=== PATIENT | male | born 1965 | race Caucasian/White ===

== ENCOUNTER 2017-07-21 15:26 | Emergency (ER) | payer OTHER ==
[2017-07-21 15:33] VITALS: BMI 31.8
--- NOTE | 2017-07-21 15:57 | DR.GENAD ---
HPI - PCP Primary Care Physician: RANDALL - HPI Comment HPI Comment: GENERALIZE WEAKNESS THAT IS GETTING WORSE. PATIENT SAID HIS SYMTOMS ARE PERSISTANT. NO HISTORY OF TRAUMA. - Complaint/Symptoms Chief Complaint Doctors Comments: DYSARTHRIA, ATAXIA AND DIZZINESS SINCE THURSDAY. 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 - Nurses notes reviewed Nurses Notes Review: Yes - Source History Provided: Patient - Mode of Arrival Mode of Arrival: Ambulatory - Timing Onset of Chief Complaint: 07/19/17 Came on: Suddenly - Duration Duration: Constant Duration: Days - Severity Severity: Moderate PMH - PMH Past Medical History: Yes Past Medical History: Diabetes, Dyslipidemia, Hypertension Past Surgical History: Yes Past Surgical History Comment: HERNIA, TESTICLES - Family History History of Family Medical Conditions: No - Social History Does patient currently use any type of tobacco product: No Have you used tobacco products in the last 12 months: No Type of Tobacco Use: None Does any household member use tobacco: No Alcohol Use: None Do you use any recreational Drugs:: No Lives With: Family Lives Where: Home - infectious screening In the last 2 months have you had wt loss of >10#?: NO Have you had fever, night sweats or hemotysis?: No Have you traveled outside the country in the last 6 months?: No Isolation: Standard ROS - Review of Systems Constitutional: No Symptoms Reported Eyes: No Symptoms Reported ENTM: No Symptoms Reported Respiratoy: No Symptoms Reported Cardiovascular: No Symptoms Reported Gastrointestinal/Abdominal: No Symptoms Reported Genitourinary: No Symptoms Reported Neurological: Headache, Dizziness, Other (ATAXIA, VERTIGO) Musculoskeletal: No Symptoms Reported Integumentary: No Symptoms Reported Hematologic/Lymphatic: No Symptoms Reported Endocrine: No Symptoms Reported All Other Systems: Reviewed and Negative PE - Vital Signs Vitals: Temperature 98.6 F Pulse Rate [Right Brachial] 63 Pulse Rate 63 Respiratory Rate 20 Blood Pressure [Left Arm] 180/96 Blood Pressure 167/92 O2 Sat by Pulse Oximetry 100 - General Limitations: No Limitations General Appearance: Alert - Head Head Exam: Normal Inspection - Eyes Eye exam: Normal Appearance - ENT ENT Exam: Normal External Ear Exam External Ear Exam: Normal External Inspection TM/Canal Exam: Bilateral Normal Nose Exam: Normal Nose Exam Mouth Exam: Normal Inspection Throat Exam: Normal Inspection - Neck Neck Exam: Trachea Midline - Chest Chest Inspection: Symmetric Chest Wall Rise - Respiratory Respiratory Exam: Normal Lung Sounds Bilat Respiratory Exam: Bilateral Clear to Auscultation - Cardiovascular Cardiovascular Exam: Regular Rate, Normal Rhythm, Normal Heart Sounds - Abdominal Exam Abdominal Exam: Normal Bowel Sounds, Soft. negative: Tenderness - Extremities Extremities Exam: Normal Inspection - Back Back Exam: Normal Inspection - Neurologic Neurological Exam: Alert, Oriented X3, Reflexes Normal. negative: CN II-XII Intact (DYSARTHRIA), Normal Gait (ATAXIC GAIT), Motor Sensory Deficit - Psychiatric Psychiatric Exam: Normal Affect, Normal Mood - Skin Skin Exam: Normal Color MDM - Additional Information Additional Information Obtained From: Family - Differential Diagnosis Differential Diagnosis: CVA, TIA, BRAIN BLEED, BRAIN ANUERYSM Course - Treatment Treatment: SEE ORDERS. ASA IN ED. - Consultation Consultation Comments: DISCUSS PATIENT WITH DR.SINGH NEURO. WANT PATIENT TRANSFER TO HIGHER LEVEL OF CARE. DR. WOODWARD [facility] IN [place] ACCEPTED PATIENT FOR TRANSFER TO ED. - Education/Counseling Education/Counseling: Patient, Family, Education Educated On: Diagnosis ROR - Labs Reviewed Laboratory Results Reviewed?: Yes Result Diagrams: 07/21/17 16:05 07/21/17 16:05 Laboratory: WBC 8.0 X10^3/uL (3.6-10.0) 07/21/17 16:05 RBC 5.41 X10^6/uL (4.7-6.0) 07/21/17 16:05 Hgb 16.6 g/dL (13.5-18.0) 07/21/17 16:05 Hct 48.3 % (42.0-54.0) 07/21/17 16:05 MCV 89.3 fL (80.0-100.0) 07/21/17 16:05 MCH 30.7 pg (27.0-34.0) 07/21/17 16:05 MCHC 34.4 g/dL (33.0-35.0) 07/21/17 16:05 RDW 13.1 % (11.6-16.5) 07/21/17 16:05 Plt Count 282 X10^3/uL (150.0-450.0) 07/21/17 16:05 MPV 7.5 fL (7.4-11.0) 07/21/17 16:05 Neut % 73.4 % (42.0-75.0) 07/21/17 16:05 Lymph % 17.4 % (21.0-51.0) L 07/21/17 16:05 [place] % 8.6 % (0.0-13.0) 07/21/17 16:05 Eos % 0.1 % (0.9-2.9) L 07/21/17 16:05 Baso % 0.5 % (0.2-1.0) 07/21/17 16:05 Neut # 5.9 x10^3/uL (2.2-4.8) H 07/21/17 16:05 Lymph # 1.4 X10^3/uL (1.3-2.9) 07/21/17 16:05 [place] # 0.7 x10^3/uL (0.3-0.8) 07/21/17 16:05 Eos # 0.0 x10^3/uL (0.0-0.2) 07/21/17 16:05 Baso # 0.0 X10^3/uL (0.0-0.1) 07/21/17 16:05 Absolute Nucleated RBC 0.0 /100WBC 07/21/17 16:05 INR Target Range - 07/21/17 16:05 INR 1.01 (0.8-1.3) 07/21/17 16:05 PTT 31.2 SECONDS (22.9-36.5) 07/21/17 16:05 PTT Comment - 07/21/17 16:05 Sodium 138 mmol/L (136-145) 07/21/17 16:05 Corrected Sodium 141 mmol/L (136-145) 07/21/17 16:05 Potassium 4.2 mmol/L (3.5-5.1) 07/21/17 16:05 Chloride 100 mmol/L (98-107) 07/21/17 16:05 Carbon Dioxide 30.8 mmol/L (21-32) 07/21/17 16:05 BUN 12 mg/dL (7-18) 07/21/17 16:05 Creatinine 1.26 mg/dL (0.70-1.30) 07/21/17 16:05 Est GFR (MDRD) Af Amer > 60 (>60) 07/21/17 16:05 Est GFR (MDRD) Non-Af > 60 (>60) 07/21/17 16:05 Glucose 221 mg/dL (65-99) H 07/21/17 16:05 Calcium 9.7 mg/dL (8.5-10.1) 07/21/17 16:05 Corrected Calcium TNP 07/21/17 16:05 Magnesium 1.9 mg/dL (1.7-2.9) 07/21/17 16:05 Total Bilirubin 0.50 mg/dL (0.2-1.0) 07/21/17 16:05 AST 20 Units/L (15-37) 07/21/17 16:05 ALT 37 Units/L (12-78) 07/21/17 16:05 Alkaline Phosphatase 45 Units/L (46-116) L 07/21/17 16:05 Creatine Kinase 74 Units/L (39-308) 07/21/17 16:05 CK-MB (CK-2) < 1.0 ng/mL (0-4.0) 07/21/17 16:05 CK/CKMB % Calc 1.4 % (<4) 07/21/17 16:05 Troponin I < 0.02 ng/mL (0-1.5) 07/21/17 16:05 Total Protein 8.1 g/dL (6.4-8.2) 07/21/17 16:05 Albumin 4.2 g/dL (3.4-5.0) 07/21/17 16:05 Globulin 3.9 g/dL (2.5-4.5) 07/21/17 16:05 Albumin/Globulin Ratio 1.1 Ratio (1.1-2.1) 07/21/17 16:05 Triglycerides 135 mg/dL (0-150) 07/21/17 16:05 Cholesterol 194 mg/dL (0-200) 07/21/17 16:05 LDL Cholesterol, Calc 109 mg/dL (0-100) H 07/21/17 16:05 HDL Cholesterol 58 mg/dL (40-60) 07/21/17 16:05 Cholesterol/HDL Ratio 3.3 (0.0-5.0) 07/21/17 16:05 - XRAY XRAY Interpreted by: Radiologist XRAY Findings: REPORT DISCUSS WITH PATIENT. - EKG Rhythm: NSR (EKG NOTES) - Diagnosis Discharge Problem: Cerebellar infarct, Dizziness, Dysarthria - Discharge Plan Disposition: 02 XFER [facility] Condition: Stable - Follow ups/Referrals Follow ups/Referrals: NFD,None [Primary Care Provider] - 3 days - Instructions
[2017-07-21 16:15] LABS: BASOPHILS % (AUTO) 0.5 % (0.2-1.0); EOSINOPHILS % (AUTO) 0.1 % (0.9-2.9); HEMATOCRIT 48.3 % (42.0-54.0); HEMOGLOBIN 16.6 g/dL (13.5-18.0); LYMPHOCYTES # (AUTO) 1.4 X10^3/uL (1.3-2.9); LYMPHOCYTES % (AUTO) 17.4 % (21.0-51.0); MEAN CORPUSCULAR HEMOGLOBIN 30.7 pg (27.0-34.0); MEAN CORPUSCULAR HGB CONC 34.4 g/dL (33.0-35.0); MEAN CORPUSCULAR VOLUME 89.3 fL (80.0-100.0); MEAN PLATELET VOLUME 7.5 fL (7.4-11.0); MONOCYTES # (AUTO) 0.7 x10^3/uL (0.3-0.8); MONOCYTES % (AUTO) 8.6 % (0.0-13.0); NEUTROPHILS # (AUTO) 5.9 x10^3/uL (2.2-4.8); NEUTROPHILS % (AUTO) 73.4 % (42.0-75.0); PLATELET COUNT 282 X10^3/uL (150.0-450.0); RED BLOOD COUNT 5.41 X10^6/uL (4.7-6.0); RED CELL DISTRIBUTION WIDTH 13.1 % (11.6-16.5)
[2017-07-21 16:38] LABS: BLOOD UREA NITROGEN 12 mg/dL (7-18); CALCIUM 9.7 mg/dL (8.5-10.1); CARBON DIOXIDE 30.8 mmol/L (21-32); CHLORIDE 100 mmol/L (98-107); COR NA(FOR HYPERGLY) 141 mmol/L (136-145); CREATININE 1.26 mg/dL (0.70-1.30); SODIUM 138 mmol/L (136-145); TROPONIN I < 0.02 ng/mL (0-1.5); eGFR BLACK RACES > 60 (>60); eGFR NON BLACK RACES > 60 (>60)
--- NOTE | 2017-07-21 16:38 | CT ---
HISTORY: Headache, dizziness Study: CT brain without contrast Comparison: None Technique: Multiple axial images of the brain were obtained from the skull base to the vertex without administra tion of IV contrast. Dose reduction techniques including Automated Exposure Control (AEC) and adjust ment of mA and kV were utilized. Findings: There is a transcortical geographic area of low attenuation left cerebellum suggesting cytotoxic david a compatible with a subacute infarction. These low attenuation changes are seen extending into the ce rebellar peduncle s in the midbrain. No evidence of acute hemorrhage, midline shift, mass effect or a bnormal extra-axial fluid collection. The ventricular system is symmetric and nondilated. The soft tissues and osseous structures are unremarkable. The visualized paranasal sinuses are clear. IMPRESSION: 1. Findings compatible with a large subacute infarction in the left cerebellum. MRI is recommended fo r further evaluation. No evidence of acute hemorrhage. The results were communicated to Dr. Serrano at 4:36 p.m. by Charo Maguire MD. Reported By:
[2017-07-21 16:39] LABS: ALANINE AMINOTRANSFERASE 37 Units/L (12-78); ALBUMIN 4.2 g/dL (3.4-5.0); ALKALINE PHOSPHATASE 45 Units/L (46-116); ASPARTATE AMINO TRANSFERASE 20 Units/L (15-37); CKMB % 1.4 % (<4); CREATINE KINASE 74 Units/L (39-308); CREATINE KINASE MB < 1.0 ng/mL (0-4.0); TOTAL PROTEIN 8.1 g/dL (6.4-8.2)
--- NOTE | 2017-07-21 16:45 | RAD ---
AP Chest Indication: Chest pain Comparison: None available Findings: The trachea is midline. The cardiac silhouette is unremarkable. There is subsegmental atelectasis w ithin the right lung base. There is cortical irregularity and increased sclerosis of the left scapular body extending to the und er surface of the glenoid neck, this suggest sequela of previous trauma/fracture; however if this valdez s not correlate with patient history then left shoulder radiographs would be recommended for further characterization. IMPRESSION: 1. See above. Reported By:
[2017-07-21 17:33] LABS: CHOL/HDL RATIO 3.3 (0.0-5.0); MAGNESIUM 1.9 mg/dL (1.7-2.9)
[2017-07-21 18:05] VITALS: BP 180/96
[2017-07-21] MEDS ORDERED: ASPIRIN ONE (18:11)
[2017-07-22] MEDS ORDERED: ASPIRIN PO ONE (18:13)
== END 2017-07-21 19:16 | disposition short-term general hospital (02) ==
LOC: ER 15:51
DX: I63.9 Cerebral infarction, unspecified (principal); R42 Dizziness and giddiness; R47.1 Dysarthria and anarthria
CPT/HCPCS: 36415; 70450; 71010; 80053; 80061; 82550; 82553; 83735; 84484; 85025; 85610; 85730; 93005; 93010; 96365; 96374; 99283; 99285; A4222